=== PATIENT | female | born 1965 | race Caucasian/White ===

== ENCOUNTER 2019-07-15 17:12 | Emergency (ER) | payer MEDICAID ==
[~2019-07-15] VITALS: Ht 170.2 cm; Wt 60.0 kg
[2019-07-15] MEDS ORDERED: ACETAMINOPHEN 500MG TABLET PO ONE (18:45)
[2019-07-15] MEDS ORDERED: IBUPROFEN 600MG TABLET PO ONE (18:45)
[2019-07-15] MEDS ORDERED: HYDROCODONE/ACETAMINOPHEN 5/325MG TABLET PO ONE (20:15)
[2019-07-15 20:26] VITALS: BP 139/75
== END 2019-07-15 20:29 | disposition home or self-care (01) ==
LOC: ER 18:52
DX: R07.89 Other chest pain (principal); M54.2 Cervicalgia; V29.59XA Motorcycle passenger injured in collision with other motor vehicles in traffic accident, initial encounter; Y93.89 Activity, other specified; Y92.89 Other specified places as the place of occurrence of the external cause; Y99.8 Other external cause status; M79.645 Pain in left finger(s)
CPT/HCPCS: 71046; 73130; 93005; 99284